=== PATIENT | female | born 1965 ===

== ENCOUNTER 2017-08-12 20:17 | Emergency (ER) | payer SELFPAY ==
[2017-08-12 20:59] VITALS: RESP 18
[2017-08-12 21:55] VITALS: BP 110/80; PULSE 87; TEMP 99.8; O2SAT 97
--- NOTE | 2017-08-12 21:58 | C.PDOC ---
History Of Present Illness 51 y/o female c/o dry cough, body aches, sore throat, and subjective fever x 3 days. Pt states that she has pleuritic chest pain with cough. Denies n/v/d. Denies sick contacts. Time Seen by Provider: 08/12/17 21:41 Chief Complaint (Nursing): ENT Problem History Per: Patient History/Exam Limitations: no limitations Onset/Duration Of Symptoms: Days Current Symptoms Are (Timing): Still Present Sick Contacts (Context): None Severity: Moderate Past Medical History Reviewed: Historical Data, Nursing Documentation, Vital Signs Vital Signs: Last Vital Signs Temp 99.8 F H 08/12/17 21:55 Pulse 87 08/12/17 21:55 Resp 18 08/12/17 21:55 BP 110/80 08/12/17 21:55 Pulse Ox 97 08/12/17 21:59 - Medical History PMH: No Chronic Diseases Surgical History: Family History: States: No Known Family Hx - Social History Hx Alcohol Use: No Hx Substance Use: No - Immunization History Hx Tetanus Toxoid Vaccination: No Hx Influenza Vaccination: No Hx Pneumococcal Vaccination: No Review Of Systems Constitutional: Positive for: Fever (subjective fever), Malaise ENT: Positive for: Throat Pain Respiratory: Positive for: Cough Physical Exam - Physical Exam Appears: Non-toxic, No Acute Distress Skin: Normal Color, Warm, Dry Head: Atraumatic, Normacephalic Eye(s): bilateral: Normal Inspection Ear(s): Bilateral: Normal Nose: Normal Oral Mucosa: Moist Throat: Erythema, No Exudate Neck: Supple Chest: Symmetrical Cardiovascular: Rhythm Regular Respiratory: Normal Breath Sounds, No Rales, No Rhonchi, No Wheezing Gastrointestinal/Abdominal: Normal Exam, Soft, No Tenderness Neurological/Psych: Oriented x3, Normal Speech ED Course And Treatment O2 Sat by Pulse Oximetry: 97 (RA) Pulse Ox Interpretation: Normal Medical Decision Making Medical Decision Making: Plan: --Tylenol PO rapid strep 2245 rapid strep neg. pt with decreased discomfort. will d/c home with tamiflu. Disposition Counseled Patient/Family Regarding: Studies Performed, Diagnosis, Need For Followup, Rx Given - Disposition Referrals: Non [facility] Provider, [Primary Care Provider] - [facility] [Outside] Disposition: HOME/ ROUTINE Disposition Time: 22:47 Condition: GOOD Additional Instructions: Por favor, brittany un seguimiento con scherer mdico o en zi clnica mdica la prxima semana. [place] Tamiflu segn lo prescrito. [place] Tylenol o Motrin para la fiebre o el dolor. Ms reposo. Valerie ms lquidos Regrese a ER para cualquier sntoma peor. Please follow up with your doctor or in medical clinic in the next week. Take Tamiflu as prescribed. Take Tylenol or Motrin for fever or pain. More bedrest. Drink more fluids. Return to ER for any worse symptms. Prescriptions: Acetaminophen [Tylenol 325mg tab] 650 mg PO Q6 #30 tab Oseltamivir Phosphate [Tamiflu] 75 mg PO BID #10 capsule Instructions: Flu, Adult (DC) Forms: [employer] (Serbian), [employer] (Gabonese), Gen Discharge Inst Gabonese - Clinical Impression Clinical Impression: Influenza-like illness - PA / [employer]EN[employer] / Resident Statement MD/DO has reviewed & agrees with the documentation as recorded. - Scribe Statement The provider has reviewed the documentation as recorded by the Scribe Jigar Lopez Provider Attestation All medical record entries made by the Scribe were at my direction and personally dictated by me. I have reviewed the chart and agree that the record accurately reflects my personal performance of the history, physical exam, medical decision making, and the department course for this patient. I have also personally directed, reviewed, and agree with the discharge instructions and disposition.
== END 2017-08-12 22:58 | disposition home or self-care (01) ==
LOC: C.ER 20:17 → SUPCPDRO 20:17 → C.ER 22:58
DX: J11.1 Influenza due to unidentified influenza virus with other respiratory manifestations (principal)